=== PATIENT | female | born 1970 | race Caucasian/White ===

== ENCOUNTER 2022-04-27 17:00 | Emergency (ER) | payer MEDICAID, OTHER ==
[~2022-04-27] VITALS: Ht 170 cm; Wt 78.0 kg
[2022-04-27] MEDS ORDERED: METHYLNALTREXONE 12 MG/0.6 ML (RELISTOR) VIAL SQ ONE (17:15)
--- NOTE | 2022-04-27 17:15 | ED Back Pain ---
General Chief Complaint: Back Problems Stated Complaint: BACK PAIN Source of Information: Patient, EMS Exam Limitations: No Limitations History of Present Illness Date Seen by Provider: Apr 27, 2022 Time Seen by Provider: 17:01 Initial Comments 51-year-old female that had recent lumbar spine surgery on Thursday at [facility] coming in due to back pain. She has been taking oxycodone 10 mg every 4-6 hours as needed. She had not had a bowel movement in roughly 6 days so she stopped taking her pain medicine altogether. She then started aggressively taking MiraLAX and other medications to try to have a bowel movement. She had multiple bowel movements earlier today, but now her pain is out of control. She tried taking one of her oxycodone with no significant relief so she called EMS. They gave her a total of 200 mcg of fentanyl via her IV. They report normal vitals. The pain is in her lower back near the surgical wound, constant, throbbing/aching/moderate to severe. Does not radiate anywhere. Denies any weakness or numbness with it. Having normal urinary output without difficulty. She is otherwise denying any other acute complaints. Allergies and Home Medications Allergies Coded Allergies: acetaminophen (Verified Allergy, Unknown, 04/27/22) baclofen (Verified Allergy, Unknown, 04/27/22) clindamycin (Verified Allergy, Unknown, 04/27/22) erythromycin base (Verified Allergy, Unknown, 04/27/22) haloperidol (Verified Allergy, Unknown, 04/27/22) ketorolac (Verified Allergy, Unknown, 04/27/22) propoxyphene (Verified Allergy, Unknown, 04/27/22) Patient Home Medication List Home Medication List Reviewed: Yes Review of Systems Constitutional: No fever EENTM: No blurred vision Respiratory: No cough Cardiovascular: No chest pain Gastrointestinal: No abdominal pain Genitourinary: no symptoms reported Musculoskeletal: back pain Skin: no symptoms reported Psychiatric/Neurological: No Symptoms Reported All Other Systems Reviewed Negative Unless Noted: Yes Past Tjkifjj-Agqybu-Kepmhi Hx Patient Social History Tobacco Use?: Yes Tobacco type used: Cigarettes Smoking Status: Current Everyday Smoker Use of E-Cig and/or Vaping dev: No Substance use?: No Alcohol Use?: No Pt feels they are or have been: No Immunizations Up To Date First/Initial COVID19 Vaccinat: 2020 Second COVID19 Vaccination Bebeto: 2020 COVID19 Vaccine Senior Technical Business Analyst: AURELIANO Past Medical History Surgery/Hospitalization HX: BACK SX Surgeries: Yes Physical Exam Vital Signs Capillary Refill : Height, Weight, BMI Height: '" Weight: lbs. oz. kg; BMI Method: General Appearance: No Apparent Distress, WD/WN HEENT: PERRL/EOMI, Normal ENT Inspection, Pharynx Normal Neck: Full Range of Motion, Normal Inspection, Non Tender, Supple Cardiovascular: Regular Rate, Rhythm, No Edema, Normal Peripheral Pulses Respiratory: Chest Non Tender, Lungs Clear, Normal Breath Sounds, No Accessory Muscle Use, No Respiratory Distress Gastrointestinal: Normal Bowel Sounds, Non Tender, Soft; No Distended, No Guarding Back: Normal Inspection, No CVA Tenderness, Other (Surgical wound appropriately tender, but appears clean, dry, intact with no signs of infection) Extremity: Normal Capillary Refill, Normal Inspection, Normal Range of Motion, Non Tender, No Calf Tenderness; No No Pedal Edema Neurologic/Psychiatric: Alert, No Motor/Sensory Deficits, Normal Mood/Affect, Other (Normal gait) Skin: Normal Color, Warm/Dry Lymphatic: No Adenopathy Progress/Results/Core Measures Results/Orders My Orders Orders - AILEEN YOUNG MD Methylnaltrexone Injection (Relistor Inj (04/27/22 17:15) Oxycodone Immediate Rel Tablet (Oxyir Ta (04/27/22 17:15) Progress Progress Note : Progress Note 51-year-old female with above history coming in due to low back pain in the setting of recent back surgery and not taking her prescribed pain medicine. ABCs were intact and vitals were stable on presentation. Physical exam reassuring including an noninfected surgical wound. Her neuro exam is normal. We will give her her oxycodone 10 mg dose that she is due for. We will give her a subcu injection of Relistor to hopefully help mitigate future constipation. I believe she is stable for discharge with outpatient follow-up. She was sent home with strict return precautions. Departure Impression Primary Impression: Postoperative pain after spinal surgery Disposition: HOME, SELF-CARE Condition: Stable Departure-Patient Inst. Decision time for Depature: 17:35 Patient Instructions: Postoperative Pain (DC) Add. Discharge Instructions: I would continue to take the oxycodone as needed. I would take the MiraLAX 2-3 times per day as well as her other medications. If you stop the oxycodone cold turkey, your pain will be severe. If you plan to stop it, try to lower your dose a little bit each day. Sure to follow-up with your spine doctor, call them tomorrow or sooner if things are not improving. Work/School Note: Work Release Form Date Seen in the Emergency Department: Apr 27, 2022 Return to Work: Apr 28, 2022 Restrictions: No Restrictions AILEEN YOUNG MD Apr 27, 2022 17:15
[2022-04-27 17:38] VITALS: BP 134/90
== END 2022-04-27 17:38 | disposition home or self-care (01) ==
LOC: ER FS 17:02
DX: G89.18 Other acute postprocedural pain (principal); M54.50 Low back pain, unspecified; F17.210 Nicotine dependence, cigarettes, uncomplicated; Z88.5 Allergy status to narcotic agent; Z88.6 Allergy status to analgesic agent

== ENCOUNTER 2022-12-12 12:58 | Emergency (ER) | payer MEDICAID ==
[~2022-12-12] VITALS: Ht 170.2 cm; Wt 74.8 kg
[2022-12-12 12:58] VITALS: BP 122/91
--- NOTE | 2022-12-12 13:07 | ED Back Pain ---
General Stated Complaint: BACK PAIN Source of Information: Patient, EMS, Old Records History of Present Illness Date Seen by Provider: Dec 12, 2022 Time Seen by Provider: 11:51 Initial Comments 52-year-old female with past medical history of chronic back pain coming in due to back pain. Had a discectomy in March of last year and has had issues since then. Takes hydrocodone 10 mg every 4 hours as well as Soma daily. Had an MRI done within the past month and does have some new bulging disc. She was told by her surgeon that she may need "pins and rods". Having increasing pain this morning so she took an extra dose of her hydrocodone which helped somewhat, but she wanted to come in to be checked out. Denies any numbness, weakness, bowel or bladder issues, difficulty walking, fever, chills, or any other concerns. Also denies any falls or trauma. EMS reports normal vitals and they started an IV and gave her 200 mcg of fentanyl Allergies and Home Medications Allergies Coded Allergies: acetaminophen (Verified Allergy, Unknown, 04/27/22) baclofen (Verified Allergy, Unknown, 04/27/22) clindamycin (Verified Allergy, Unknown, 04/27/22) erythromycin base (Verified Allergy, Unknown, 04/27/22) haloperidol (Verified Allergy, Unknown, 04/27/22) ketorolac (Verified Allergy, Unknown, 04/27/22) propoxyphene (Verified Allergy, Unknown, 04/27/22) Patient Home Medication List Home Medication List Reviewed: Yes Review of Systems Constitutional: No fever EENTM: no symptoms reported Respiratory: no symptoms reported Cardiovascular: no symptoms reported Gastrointestinal: no symptoms reported Genitourinary: no symptoms reported Musculoskeletal: see HPI Skin: no symptoms reported Psychiatric/Neurological: No Symptoms Reported All Other Systems Reviewed Negative Unless Noted: Yes Past Wtaggsq-Dxqjwc-Cpmcxb Hx Patient Social History Substance use?: No Immunizations Up To Date First/Initial COVID19 Vaccinat: 2020 Second COVID19 Vaccination Bebeto: 2020 Past Medical History Surgery/Hospitalization HX: BACK SX Surgeries: Yes Physical Exam Vital Signs Capillary Refill : Height, Weight, BMI Height: '" Weight: lbs. oz. kg; 26.00 BMI Method: General Appearance: No Apparent Distress, WD/WN HEENT: PERRL/EOMI, Normal ENT Inspection, Pharynx Normal Neck: Full Range of Motion, Normal Inspection, Non Tender, Supple Cardiovascular: Regular Rate, Rhythm, No Edema, Normal Peripheral Pulses Respiratory: Chest Non Tender, Lungs Clear, Normal Breath Sounds, No Accessory Muscle Use, No Respiratory Distress Gastrointestinal: Normal Bowel Sounds, Non Tender, Soft; No Distended, No Guarding Back: Normal Inspection, No CVA Tenderness, No Vertebral Tenderness Extremity: Normal Capillary Refill, Normal Inspection, Normal Range of Motion, Non Tender, No Calf Tenderness Neurologic/Psychiatric: Alert, Oriented x3, No Motor/Sensory Deficits, Normal Mood/Affect, Other (2+ patellar reflexes, normal dorsiflexion and plantarflexion of the feet, normal hip flexion and extension, normal sensation in the legs, normal gait) Skin: Normal Color, Warm/Dry Progress/Results/Core Measures Results/Orders My Orders Orders - AILEEN YOUNG MD Hydrocodone/Apap 10/325 Tablet (Lortab 1 (12/12/22 13:15) Dexamethasone Injection (Decadron Inje (12/12/22 13:15) Progress Progress Note : Progress Note 52-year-old female coming in for acute on chronic back pain. ABCs were intact and vitals were stable on presentation. She has no red flags in regards to her clinical history or exam. Has had an MRI recently and does have reasons for the back pain. Does have a surgeon she follows up with and does have multimodal pain regimen that she is already taking. I will give her her time to dose for hydrocodone 30 minutes early as well as IM Decadron to try to help with the pain. I believe she is otherwise stable for discharge with outpatient follow-u p. She was sent home with strict return precautions Departure Impression Primary Impression: Low back pain Qualified Codes: M54.42 - Lumbago with sciatica, left side; G89.29 - Other chronic pain Disposition: HOME, SELF-CARE Condition: Stable Departure-Patient Inst. Decision time for Depature: 13:15 Referrals: NO,LOCAL PHYSICIAN (PCP/Family) Primary Care Physician Patient Instructions: Low Back Pain ED Add. Discharge Instructions: Please contact your surgeon discussed that you are in the ER for increased pain. They may be able to increase your dose of your medicines versus get you in sooner for potential surgery assess what you need. He may benefit from physical therapy as well. Please come back to the ER if you have any weakness or you cannot move 1 leg, numbness we cannot feel the leg, or loss of bowel or bladder function. Work/School Note: Work Release Form Date Seen in the Emergency Department: Dec 12, 2022 Return to Work: Dec 13, 2022 Restrictions: No Restrictions AILEEN YOUNG MD Dec 12, 2022 13:07
== END 2022-12-12 13:22 | disposition home or self-care (01) ==
LOC: EDUNIT# 12:58 → ER FS 12:59
DX: M54.50 Low back pain, unspecified (principal); G89.29 Other chronic pain; Z79.891 Long term (current) use of opiate analgesic; Z98.890 Other specified postprocedural states

== ENCOUNTER 2023-03-15 07:29 | Emergency (ER) | payer MEDICAID ==
[~2023-03-15] VITALS: Ht 170.2 cm; Wt 79.8 kg
[2023-03-15] MEDS ORDERED: methylPREDNISolone 80 MG/ML (DEPO MEDROL) VIAL IM STA (07:42)
--- NOTE | 2023-03-15 07:49 | ED General ---
General Stated Complaint: SORE THROAT/BACK PAIN Source of Information: Patient History of Present Illness Date Seen by Provider: Mar 15, 2023 Time Seen by Provider: 07:33 Initial Comments 52-year-old female presenting with complaints of developing a sore throat which overnight. She did have some nausea and vomiting overnight as well. She states that part doing better but her throat still hurts. She was worried she might have strep throat although she has not had any ill contacts that she is aware of. She also was concerned that she may have eaten some bad hamburger last night because it smelled bad and did not taste right when she was eating it. She stated that she only ate a little bit on it because it tasted so bad. She has felt like her low back pain has been flared up for the last 4 to 6 weeks. She is taking hydrocodone 10/325 every 4 hours for her chronic back pain and states she has been on pain medicine for over 20 years for her back. She has an appointment on Thursday to see spinal surgeon because of a new bulging disc in her back and being told that she needed to have rods and pins in her back. She denies any fever or chills, diarrhea, pain with urination, cough, shortness of breath. She reports that she was due for pain pill around 7 AM. She did not bring her pain medicine with her. She denies any new numbness or tingling going into her legs and no loss of bowel or bladder control. She also denies any acute or new trauma to cause increased back pain Timing/Duration: 1-3 Hours Severity: Moderate Modifying Factors: worse with Other (swallowing makes her throat hurt more) Associated Systoms: No Chest Pain, No Cough, No Diaphoresis, No Fever/Chills, No Headaches, No Loss of Appetite, No Malaise; Nausea/Vomiting (early this morning); No Rash, No Seizure, No Shortness of Air, No Syncope Allergies and Home Medications Allergies Coded Allergies: acetaminophen (Verified Allergy, Unknown, 04/27/22) baclofen (Verified Allergy, Unknown, 04/27/22) clindamycin (Verified Allergy, Unknown, 04/27/22) erythromycin base (Verified Allergy, Unknown, 04/27/22) haloperidol (Verified Allergy, Unknown, 04/27/22) ketorolac (Verified Allergy, Unknown, 04/27/22) propoxyphene (Verified Allergy, Unknown, 04/27/22) Patient Home Medication List Home Medication List Reviewed: Yes Amoxicillin (Amoxicillin) 875 Mg Tablet, 875 MG PO BID Prescribed by: JINNY MISHRA on 03/15/23808 Ondansetron (Ondansetron Odt) 4 Mg Tab.rapdis, 4 MG PO Q6H PRN for NAUSEA/VOMITING Prescribed by: JINNY MISHRA on 03/15/23 0809 Review of Systems Review of Systems Constitutional: No chills, No fever EENTM: see HPI, throat pain; No epistaxis, No nose congestion Respiratory: No cough Cardiovascular: no symptoms reported Gastrointestinal: see HPI Genitourinary: No dysuria Musculoskeletal: see HPI, back pain (chronic back pain that has been "flared up" for the last 4 to 6 weeks and sees her back surgeon this ThursdayMar 18) Skin: No change in color, No rash Psychiatric/Neurological: Anxiety Past Gwbcgfl-Hqwxtc-Uyiavh Hx Patient Social History Use of E-Cig and/or Vaping dev: No Substance use?: No Alcohol Use?: No Immunizations Up To Date First/Initial COVID19 Vaccinat: 2020 Second COVID19 Vaccination Bebeto: 2020 Third COVID19 Vaccination Date: 2020 Past Medical History Surgery/Hospitalization HX: BACK SX, manic bipolar, hysterectomy Surgeries: Yes Physical Exam Vital Signs Vital Signs - First Documented 03/15/23 07:34 Temp 36.2 Pulse 97 Resp 18 B/P (MAP) 140/101 (114) O2 Delivery Room Air Capillary Refill : Height, Weight, BMI Height: '" Weight: lbs. oz. kg; 25.00 BMI Method: General Appearance: No Apparent Distress (sitting on the exam table and actively swinging her legs back and forth as she sits on the table. ) Eyes: Bilateral Eye PERRL, Bilateral Eye EOMI HEENT: Moist Mucous Membranes, Pharyngeal Erythema; No Photophobia, No Tonsillar Exudate Neck: Full Range of Motion, Normal Inspection, Non Tender, Supple Respiratory: Chest Non Tender, Lungs Clear, Normal Breath Sounds, No Accessory Muscle Use, No Respiratory Distress Cardiovascular: Regular Rate, Rhythm, Normal Peripheral Pulses Gastrointestinal: Normal Bowel Sounds, Non Tender, Soft Rectal: Deferred Extremity: Normal Capillary Refill, Normal Inspection, Normal Range of Motion, No Pedal Edema Neurologic/Psychiatric: Alert, Oriented x3, sap bw bi developer II-XII Norm as Tested Skin: Normal Color, Warm/Dry; No Rash Progress/Results/Core Measures Suspected Sepsis SIRS Temperature: Pulse: Respiratory Rate: Blood Pressure / Mean: Results/Orders Lab Results Laboratory Tests Test 03/15/23 07:43 Range/Units Group A Streptococcus Screen NEGATIVE NEGATIVE My Orders Orders - JINNY MISHRA MD Rapid Strep A Screen (03/15/23 07:42) Dexamethasone Injection (Decadron Inje (03/15/23 07:42) Methylprednisolone Acetate Inj (Depo-Med (03/15/23 07:42) Throat Culture Strep A Confirm (03/15/23 07:43) Methylprednisolone Acetate Inj (Depo-Med (03/15/23 07:51) Vital Signs/I&O 03/15/23 03/15/23 07:34 08:12 Temp 36.2 36.2 Pulse 97 97 Resp 18 18 B/P (MAP) 140/101 (114) 140/101 O2 Delivery Room Air Room Air Capillary Refill : Progress Note #1: Progress Note Potential diagnosis of acute on chronic low back pain, pharyngitis, strep pharyngitis, viral pharyngitis, upper respiratory infection, throat irritation due to vomiting, food poisoning. Administer dexamethasone 10 mg IM along with Depo-Medrol 80 mg IM for her acute flareup of back pain since she already has stronger narcotic pain medicines that she takes at home. Patient drove herself here to the emergency department. Obtain rapid strep swab of her throat to check for strep pharyngitis. X-rays of her back or any radiographic imaging of her back would not be warranted with her stating that her chronic back pain is just flared up currently and no acute trauma or injury to indicate the need for imaging. Progress Note #2: Time: 07:58 Progress Note Rapid strep swab was negative for strep. A culture will be reflexed with her rapid test being negative. Since I have recently had several rapid test that were negative but positive on culture will offer patient an antibiotic versus sending a prescription to fill if her symptoms are getting worse. Counseled to try liquid diet for today to help let her stomach settle from possible food poisoning with her bad hamburger. Check back with her primary care provider if having continued concerns and symptoms during the week. After reviewing options of antibiotics and treatment with the patient she opted to take a prescription for antibiotics now. She was concerned that her symptoms would get worse if she did not try and treat it. Also counseled that this might be viral and she just needs to drink fluids and rest. Departure Impression Primary Impression: Acute pharyngitis Qualified Codes: J02.9 - Acute pharyngitis, unspecified Additional Impressions: Acute exacerbation of chronic low back pain Food poisoning Disposition: 01 HOME, SELF-CARE Condition: Stable Departure-Patient Inst. Decision time for Depature: 08:08 Referrals: NO,LOCAL PHYSICIAN (PCP/Family) Primary Care Physician Patient Instructions: Food Poisoning ED, Low Back Pain ED, Sore Throat, Adult ED Add. Discharge Instructions: Make sure you are staying well-hydrated and drink plenty of fluids. Try to take some crackers or food with the antibiotics as they can cause upset stomach. Take the full course of antibiotics to help treat for possible strep throat or bacterial infection with your throat. Make sure to keep your appointments with the back doctor and your primary care provider about your back pain being flared up and hurting worse. Scripts Ondansetron (Ondansetron Odt) 4 Mg Tab.rapdis 4 MG PO Q6H PRN for NAUSEA/VOMITING for 2 Days, #8 TAB 0 Refills Prov: JINNY MISHRA MD 03/15/23 Amoxicillin (Amoxicillin) 875 Mg Tablet 875 MG PO BID for pharyngitis for 10 Days, #20 TAB 0 Refills Prov: JINNY MISHRA MD 03/15/23 JINNY MISHRA MD Mar 15, 2023 07:49
[2023-03-15] MEDS ORDERED: methylPREDNISolone 80 MG/ML (DEPO MEDROL) VIAL ONE (07:51)
[2023-03-15] MEDS ORDERED: ONDA4TAB11 PO (08:09)
[2023-03-15] MEDS ORDERED: AMOX875T2 PO (08:09)
[2023-03-15 08:12] VITALS: BP 140/101
== END 2023-03-15 08:12 | disposition home or self-care (01) ==
LOC: EDUNIT# 07:29 → ER FS 07:31
DX: T62.91XA Toxic effect of unspecified noxious substance eaten as food, accidental (unintentional), initial encounter (principal); J02.9 Acute pharyngitis, unspecified; M54.50 Low back pain, unspecified; G89.29 Other chronic pain; Z79.891 Long term (current) use of opiate analgesic; Z88.1 Allergy status to other antibiotic agents
CPT/HCPCS: 87430; 99284

== ENCOUNTER 2023-03-19 18:43 | Emergency (ER) | payer MEDICAID ==
[~2023-03-19] VITALS: Ht 170.1 cm; Wt 80.0 kg
[2023-03-19 18:43] VITALS: BP 150/89
[~2023-03-19 18:43] MED LIST: AMOX875T2 PO; ONDA4TAB11 PO
--- NOTE | 2023-03-19 18:54 | ED Back Pain ---
General Chief Complaint: Back Problems Stated Complaint: BACK PAIN Source of Information: Patient, EMS, Old Records Exam Limitations: No Limitations History of Present Illness Date Seen by Provider: Mar 19, 2023 Time Seen by Provider: 18:44 Initial Comments 52yoF with PMH of chronic pain coming in due to low back pain. She had a disce theodora in the past and has a laminectomy scheduled in the next month. She has chronic pain associated with this and had repeat imaging done recently with no significant concerns other than some minor bulging of another disc. Denies any trauma to her back. She denies any weakness, numbness anywhere including in her perineum, no bowel or bladder issues, no fever, trauma, midline pain, no history of diabetes, and no history of IV drug use. She states this is her chronic pain which she takes hydrocodone 10 mg every 4 hours for her. She is allergic to many other medications, but does take Soma daily as well. Allergies and Home Medications Allergies Coded Allergies: acetaminophen (Verified Allergy, Unknown, 04/27/22) baclofen (Verified Allergy, Unknown, 04/27/22) clindamycin (Verified Allergy, Unknown, 04/27/22) erythromycin base (Verified Allergy, Unknown, 04/27/22) haloperidol (Verified Allergy, Unknown, 04/27/22) ketorolac (Verified Allergy, Unknown, 04/27/22) propoxyphene (Verified Allergy, Unknown, 04/27/22) Patient Home Medication List Home Medication List Reviewed: Yes Amoxicillin (Amoxicillin) 875 Mg Tablet, 875 MG PO BID Prescribed by: JINNY MISHRA on 03/15/23 0809 Ondansetron (Ondansetron Odt) 4 Mg Tab.rapdis, 4 MG PO Q6H PRN for NAUSEA/VOMITING Prescribed by: JINNY Cartagena ENKASEYRT on 03/15/23 0809 Review of Systems Constitutional: No fever EENTM: no symptoms reported Respiratory: no symptoms reported Cardiovascular: no symptoms reported Gastrointestinal: no symptoms reported Genitourinary: no symptoms reported Musculoskeletal: see HPI Skin: no symptoms reported Psychiatric/Neurological: No Symptoms Reported Past Dztxgkn-Pczhmu-Zkmsne Hx Patient Social History Substance use?: No Immunizations Up To Date First/Initial COVID19 Vaccinat: 2020 Second COVID19 Vaccination Bebeto: 2020 Third COVID19 Vaccination Date: 2021 Past Medical History Surgery/Hospitalization HX: BACK SX, manic bipolar, hysterectomy Surgeries: Yes Physical Exam Vital Signs Capillary Refill : Height, Weight, BMI Height: '" Weight: lbs. oz. kg; 27.00 BMI Method: General Appearance: No Apparent Distress, WD/WN HEENT: PERRL/EOMI, Normal ENT Inspection, Pharynx Normal Neck: Full Range of Motion, Normal Inspection, Non Tender, Supple Cardiovascular: Regular Rate, Rhythm, No Edema, Normal Peripheral Pulses Respiratory: Chest Non Tender, Lungs Clear, Normal Breath Sounds, No Accessory Muscle Use, No Respiratory Distress Gastrointestinal: Normal Bowel Sounds, Non Tender, Soft; No Distended, No Guarding Back: Normal Inspection, No CVA Tenderness, No Vertebral Tenderness, Other (Left lower paraspinal tenderness, negative straight leg test, normal strength and sensation, normal patellar reflexes) Extremity: Normal Capillary Refill, Normal Inspection, Normal Range of Motion, Non Tender, No Calf Tenderness, No Pedal Edema, Other Neurologic/Psychiatric: Alert, No Motor/Sensory Deficits, Normal Mood/Affect, Other (Patient was very strong was able to get up on all fours and move herself from the EMS cot to the bed) Skin: Normal Color, Warm/Dry Progress/Results/Core Measures Results/Orders My Orders Orders - AILEEN YOUNG MD Hydrocodone/Apap 10/325 Tablet (Lortab 1 (03/19/23 19:00) Progress Progress Note : Progress Note 52-year-old female presenting for acute on chronic low back pain. ABCs were intact and vitals were stable presentation. Physical exam with no red flags including no numbness, no weakness, normal reflexes, no bowel or bladder issues, no fever, no history of diabetes, and no IV drug use. No recent falls, no indication for imaging at this time given lack of clinical concern for a fracture. She has had instrumentation in her back remotely, but no fever, and given the lack of neuro symptoms, would be highly unlikely to have any type of infection in her back at this time. We will give her a dose of her hydrocodone 10 mg since she already received fentanyl 100 mcg via EMS. I believe she is otherwise stable for discharge with outpatient follow-up. She was sent home with strict return precautions. She already does have follow-up with a spine surgeon. Departure Impression Primary Impression: Acute exacerbation of chronic low back pain Disposition: HOME, SELF-CARE Condition: Stable Departure-Patient Inst. Decision time for Depature: 18:58 Referrals: NO,LOCAL PHYSICIAN (PCP/Family) Primary Care Physician Patient Instructions: Low Back Pain (DC) Add. Discharge Instructions: Please follow back up with your surgeon. You can take your home pain medicine as prescribed. You can also try things such as a heating pad, massage, and physical therapy. Work/School Note: Work Release Form Date Seen in the Emergency Department: Mar 19, 2023 Return to Work: Mar 20, 2023 Restrictions: No Restrictions AILEEN YOUNG MD Mar 19, 2023 18:54
== END 2023-03-19 18:58 | disposition home or self-care (01) ==
LOC: ER FS 18:43 → EDUNIT# 18:43 → ER FS 18:58
DX: M54.50 Low back pain, unspecified (principal); G89.29 Other chronic pain; Z98.890 Other specified postprocedural states; Z79.891 Long term (current) use of opiate analgesic; Z79.899 Other long term (current) drug therapy